=== PATIENT | female | born 1950 | race Caucasian/White ===

== ENCOUNTER → 2016-08-25 | Outpatient (CLI) | payer MEDICARE, MEDICAID ==
[~2016-08-25] MED LIST: ACCUNEB 0.0.63 MG/3 INH; AMARYL1 M1 PO; AMBIEN10 M1 PO; AMLODIPINE10 MG PO; ASPI-COR81 M1 PO; BUSPAR15 MG PO; CELEXA10 MG PO; CIPRO500 MG PO; CYCLOBENZAPRINE10 MG PO; CYMBALTA30 MG PO; DEXILANT60 M1 PO; ESCITALOPRAM OX10 MG PO; FENOFIBRATE54 MG PO; LOPRESSOR25 MG PO; LOPRESSOR50 MG PO; MACRODANTIN100 M1 PO; PLAVIX75 MG PO; PREDNISONE10 MG PO; PRILOSEC40 M1 PO; PRILOSEC40 MG PO; PROAIR HFA0.09 MG/AC IH; PROAIR HFA0.09 MG/AC INH; SPIRIVA18 MCG IH; SYMBICORT1 AE1 IH; Vicodin 5/500 505 MG PO; XANAX0.25 MG PO
[2016-08-25 09:24] LABS: BASO # 0.1 10*3/uL (0.0-0.1); BASO % 0.8 % (0.0-1.0); EOS # 0.1 10*3/uL (0.0-0.4); EOS % 1.7 % (1.0-4.0); HEMATOCRIT 42.9 % (37.0-47.0); HEMOGLOBIN 13.8 g/dl (12.0-16.0); LYMPH % 26.1 % (27.0-41.0); MEAN CELL VOLUME 86.5 fl (81.0-99.0); MEAN CORPUSCULAR HGB 27.8 pg (27.0-31.0); MEAN CORPUSCULAR HGB CONC 32.2 g/dl (33.0-37.0); MONO # 0.4 10*3/uL (0.1-1.0); MONO % 5.9 % (3.0-9.0); NEUT # 4.9 10*3/uL (2.3-7.9); NEUT % 65.2 % (47.0-73.0); PLATELET COUNT AUTOMATED 257 10*3/uL (130-400); RED BLOOD COUNT 4.96 10*6/uL (4.10-5.10); RED CELL DISTRI WIDTH 14.4 % (0-14.5); WHITE BLOOD COUNT 7.5 10*3/uL (4.8-10.8)
[2016-08-25 09:53] LABS: ALBUMIN 3.5 gm/dl (3.1-4.5); ALKALINE PHOSPHATASE 53 U/L (45-117); BILIRUBIN, TOTAL 0.3 mg/dl (0.2-1.0); BUN 14 mg/dl (7-24); CARBON DIOXIDE 29 mmol/L (21-32); CHLORIDE 104 mmol/L (98-107); CHOLESTEROL 186 mg/dL (<200); EST GLOM FILT AFRICAN AMERICAN > 60 ml/min; GLUCOSE 93 mg/dL (65-99); HDL CHOLESTEROL 60 mg/dl (40-60); LDL CHOLESTEROL 104 mg/dL (9-159); POTASSIUM 4.7 mmol/L (3.5-5.1); SGOT/AST 14 IU/L (3-35); SGPT/ALT 20 U/L (12-78); SODIUM 141 mmol/L (136-145); TOTAL PROTEIN 7.5 gm/dL (6.4-8.2); TRIGLYCERIDES 109 mg/dl (<150); VLDL CHOLESTEROL 22 mg/dL (6-40)
[2016-08-25 10:00] LABS: HEMOGLOBIN A1c 6.9 % (4.8-5.6)
== END | disposition home or self-care (01) ==
LOC: LAB 09:07
PROVIDERS: Family Medicine
DX: J44.9 Chronic obstructive pulmonary disease, unspecified (principal); E11.9 Type 2 diabetes mellitus without complications; I10 Essential (primary) hypertension; E78.5 Hyperlipidemia, unspecified; I73.9 Peripheral vascular disease, unspecified; I67.1 Cerebral aneurysm, nonruptured

== ENCOUNTER → 2016-09-23 | Outpatient (CLI) | payer MEDICARE, MEDICAID | END | disposition home or self-care (01) | LOC: MAMMO 10:34 | DX: Z12.31 Encounter for screening mammogram for malignant neoplasm of breast (principal); Z13.820 Encounter for screening for osteoporosis; M19.90 Unspecified osteoarthritis, unspecified site; E11.9 Type 2 diabetes mellitus without complications; E83.51 Hypocalcemia; Z87.891 Personal history of nicotine dependence; Z90.710 Acquired absence of both cervix and uterus; Z78.0 Asymptomatic menopausal state ==

== ENCOUNTER → 2016-12-09 | Outpatient (CLI) | payer MEDICARE, MEDICAID ==
[2016-12-09 10:10] LABS: HEMOGLOBIN A1c 6.8 % (4.8-5.6)
[2016-12-09 10:21] LABS: ALBUMIN 3.6 gm/dl (3.1-4.5); BILIRUBIN, TOTAL 0.3 mg/dl (0.2-1.0); POTASSIUM 4.3 mmol/L (3.5-5.1); TOTAL PROTEIN 7.6 gm/dL (6.4-8.2)
[2016-12-09 10:28] LABS: THYROID STIM HORMONE (HS) 1.11 uIU/ml (0.358-4.75)
== END | disposition home or self-care (01) ==
LOC: LAB 09:27
PROVIDERS: Family Medicine
DX: I10 Essential (primary) hypertension (principal); I73.9 Peripheral vascular disease, unspecified; E11.9 Type 2 diabetes mellitus without complications; E55.9 Vitamin D deficiency, unspecified

== ENCOUNTER → 2017-02-24 | Outpatient (CLI) | payer MEDICARE, MEDICAID ==
[2017-02-24 10:30] LABS: ALBUMIN 3.7 gm/dl (3.1-4.5); ALKALINE PHOSPHATASE 57 U/L (45-117); BUN 10 mg/dl (7-24); CHLORIDE 102 mmol/L (98-107); CHOLESTEROL 208 mg/dL (<200); CREATININE 0.97 mg/dL (0.55-1.02); HDL CHOLESTEROL 57 mg/dl (40-60); LDL CHOLESTEROL 128 mg/dL (9-159); POTASSIUM 4.2 mmol/L (3.5-5.1); SGOT/AST 17 IU/L (3-35); SGPT/ALT 22 U/L (12-78); SODIUM 138 mmol/L (136-145); TOTAL PROTEIN 7.8 gm/dL (6.4-8.2); TRIGLYCERIDES 113 mg/dl (<150); VLDL CHOLESTEROL 23 mg/dL (6-40)
[2017-02-24 10:31] LABS: HEMOGLOBIN 13.5 g/dl (12.0-16.0); MEAN CELL VOLUME 86.2 fl (81.0-99.0); MEAN CORPUSCULAR HGB 27.7 pg (27.0-31.0); MEAN CORPUSCULAR HGB CONC 32.1 g/dl (33.0-37.0); MEAN PLATELET VOLUME 11.8 fl (9.6-12.3); RED BLOOD COUNT 4.87 10*6/uL (4.10-5.10); RED CELL DISTRI WIDTH 14.9 % (0-14.5); WHITE BLOOD COUNT 8.2 10*3/uL (4.8-10.8)
[2017-02-24 10:35] LABS: INTERNATIONAL NORM RATIO 0.9 (2.0-3.5)
== END | disposition home or self-care (01) ==
LOC: LAB 09:45
PROVIDERS: Registered Nurse Flight
DX: I12.9 Hypertensive chronic kidney disease with stage 1 through stage 4 chronic kidney disease, or unspecified chronic kidney disease (principal); N18.3 Chronic kidney disease, stage 3 (moderate); E78.5 Hyperlipidemia, unspecified; E11.22 Type 2 diabetes mellitus with diabetic chronic kidney disease; I74.3 Embolism and thrombosis of arteries of the lower extremities; E55.9 Vitamin D deficiency, unspecified; I67.1 Cerebral aneurysm, nonruptured

== ENCOUNTER → 2017-02-28 | Outpatient (CLI) | payer MEDICARE, MEDICAID | END | disposition home or self-care (01) | LOC: CT 09:38 | DX: I67.1 Cerebral aneurysm, nonruptured (principal); H74.8X2 Other specified disorders of left middle ear and mastoid ==

== ENCOUNTER → 2017-04-26 | Outpatient (CLI) | payer MEDICARE, MEDICAID ==
[2017-04-26 10:12] LABS: HEMATOCRIT 43.1 % (37.0-47.0); HEMOGLOBIN 14.1 g/dl (12.0-16.0); MEAN CELL VOLUME 86.5 fl (81.0-99.0); MEAN CORPUSCULAR HGB 28.3 pg (27.0-31.0); MEAN CORPUSCULAR HGB CONC 32.7 g/dl (33.0-37.0); MEAN PLATELET VOLUME 11.9 fl (9.6-12.3); RED BLOOD COUNT 4.98 10*6/uL (4.10-5.10); RED CELL DISTRI WIDTH 14.1 % (0-14.5); WHITE BLOOD COUNT 8.6 10*3/uL (4.8-10.8)
[2017-04-26 10:25] LABS: ALBUMIN 3.7 gm/dl (3.1-4.5); CREATININE 1.24 mg/dL (0.55-1.02); POTASSIUM 4.2 mmol/L (3.5-5.1); TOTAL PROTEIN 7.8 gm/dL (6.4-8.2)
[2017-04-26 10:33] LABS: THYROID STIM HORMONE (HS) 2.59 uIU/ml (0.358-4.75)
== END | disposition home or self-care (01) ==
LOC: LAB 09:37 → MRI 10:00
PROVIDERS: Registered Nurse Flight
DX: I67.82 Cerebral ischemia (principal); I67.1 Cerebral aneurysm, nonruptured; E11.22 Type 2 diabetes mellitus with diabetic chronic kidney disease; N18.3 Chronic kidney disease, stage 3 (moderate)

== ENCOUNTER → 2017-07-19 | Outpatient (CLI) | payer MEDICARE, MEDICAID ==
[2017-07-19 09:16] LABS: ALBUMIN 3.5 gm/dl (3.1-4.5); BUN 11 mg/dl (7-24); CHLORIDE 100 mmol/L (98-107); CREATININE 0.98 mg/dL (0.55-1.02); HEMATOCRIT 41.9 % (37.0-47.0); HEMOGLOBIN 13.6 g/dl (12.0-16.0); MEAN CELL VOLUME 88.2 fl (81.0-99.0); MEAN CORPUSCULAR HGB 28.6 pg (27.0-31.0); MEAN CORPUSCULAR HGB CONC 32.5 g/dl (33.0-37.0); MEAN PLATELET VOLUME 11.4 fl (9.6-12.3); POTASSIUM 4.1 mmol/L (3.5-5.1); RED BLOOD COUNT 4.75 10*6/uL (4.10-5.10); RED CELL DISTRI WIDTH 14.5 % (0-14.5); SGOT/AST 13 IU/L (3-35); SGPT/ALT 25 U/L (12-78); SODIUM 138 mmol/L (136-145); WHITE BLOOD COUNT 8.4 10*3/uL (4.8-10.8)
[2017-07-19 09:25] LABS: ALKALINE PHOSPHATASE 63 U/L (45-117); TOTAL PROTEIN 7.6 gm/dL (6.4-8.2)
== END | disposition home or self-care (01) ==
LOC: LAB 08:01
PROVIDERS: Registered Nurse Flight
DX: E11.22 Type 2 diabetes mellitus with diabetic chronic kidney disease (principal); N18.3 Chronic kidney disease, stage 3 (moderate)

== ENCOUNTER 2017-09-07 20:20 | Inpatient (IN) | payer MEDICARE, MEDICAID ==
[~2017-09-07] VITALS: Ht 162.5 cm; Wt 94.6 kg
--- NOTE | ~2017-09-07 | EKG ---
[place], [place] ELECTROCARDIOGRAM REPORT NAME: HECTOR DWYER UNIT #: [id number] ROOM: 428 DOCTOR: TAIWO PARRA MD,JEWELS BIRTHDATE: [birth year] DOS: 09/10/2017 Time: At 3:38 p.m. Normal sinus rhythm noted. Heart rate 99 beats per minute. Nonspecific ST-T changes noted in the chest leads. JEWELS MARAVILLA MD CM:EKGRPT:ELECTROCARDIOGRAM REPORT [id number] JEWELS PARRA MD
--- NOTE | ~2017-09-07 | CON ---
[place], [place] REPORT OF CONSULTATION NAME: HECTOR DWYER UNIT #: [id number] ROOM: 428 DOCTOR: SAMREEN MASON MD BIRTHDATE: [birth year] DOS: 09/11/2017 REASON FOR CONSULTATION: Heart palpitations, possible atrial fibrillation. CLINICAL HISTORY: The patient is 66-year-old patient with history of COPD, hypertension and dyslipidemia who came to the Emergency Room with 4-day history of progressive shortness of breath and cough. She has history of COPD. She denies any chest pain, but did have occasional heart palpitations, but no dizziness or syncope. She is also having some progressive wheezing and shortness of breath. Cardiology consulted for further evaluation. Her breathing and cough is better as well as her wheezing is improved since she was in the hospital. Denies any chest pain or palpitations, but she did have occasional heart racing at home. No PND, no orthopnea, no nausea, vomiting, no diarrhea. No headaches, no bladder or bowel symptoms. Her cough is improving. REVIEW OF SYSTEMS: Review of the 10 system negative except as mentioned above. PAST MEDICAL HISTORY: 1. Hypertension. 2. Type 2 diabetes. 3. Dyslipidemia. 4. COPD. PAST SURGICAL HISTORY: 1. History of partial hysterectomy. 2. History of cerebral aneurysm repair. SOCIAL HISTORY: The patient does not drink or use illicit drugs. She is a former smoker. FAMILY HISTORY: Father from stroke. Mother from lung cancer. ALLERGIES: No known drug allergies. HOME MEDICATIONS: Reviewed. PHYSICAL EXAMINATION: VITAL SIGNS: Blood pressure 116/82, pulse 102, respiration rate 20. Weight 94.6 kilos, BMI 35.8. GENERAL: Alert, comfortable, in no acute distress. HEENT: Supple, no distended neck veins, no carotid bruit. Tongue was moist and pharynx was clear. NECK: Supple, no distended neck veins, no carotid bruit. CHEST: Symmetrical, nontender. LUNGS: Few scattered rhonchi and some expiratory wheeze. HEART: Regular rhythm, no S3. Grade 1/6 systolic murmur. ABDOMEN: Benign, nontender. Bowel sounds normal. EXTREMITIES: Showed no edema. Distal pulses palpable. SKIN: Warm and dry. No cyanosis, no clubbing. RECTAL: Deferred. [place], [place] REPORT OF CONSULTATION NAME: HECTOR DWYER UNIT #: [id number] ROOM: 428 DOCTOR: ISABELLA TITUS,SAMREEN BIRTHDATE: [birth year] GENITOURINARY: Deferred. REVIEW OF THE DIAGNOSTIC TESTS: EKG, imaging studies and rhythm strips reviewed as well as her labs reviewed. EKG normal sinus rhythm with nonspecific ST changes, sinus tachycardia. The pertinent labs include hemoglobin 12.8, platelets 281,000. Potassium 3.4, creatinine 1.0 and magnesium 2.4. TSH and T4 normal. Stress test from July 2015 reviewed. IMPRESSIONS: 1. Heart palpitations, currently stable. 2. Mild sinus tachycardia due to her underlying pulmonary condition. 3. Chronic obstructive pulmonary disease exacerbation. 4. Hypertension. 5. Pneumonia. 6. Diabetes type 2. 7. Dyslipidemia. 8. Non-morbid obesity. RECOMMENDATIONS: 1. Continue current medications. 2. Continue to monitor heart rate and blood pressures. 3. Check 2D echo for LV function and valvular function. 4. Outpatient cardiac event monitor after discharge. 5. The patient is going for a bronchoscopy tomorrow. 6. There is no family at bedside at the time of my examination. 7. Supplement her potassium, so far I have not seen any atrial fibrillation her since admission. SAMREEN MASON MD CM:CONSTR:REPORT OF CONSULTATION 2253 09/12/17 0032 interface
--- NOTE | ~2017-09-07 | PR ---
[place], [place] PROGRESS NOTE NAME: HECTOR DWYER UNIT #: [id number] ROOM: 428 DOCTOR: TAIWO PARRA MD,JEWELS BIRTHDATE: [birth year] DOS: 09/14/2017 SUBJECTIVE: . She has been noted significant improvement of acute respiratory symptoms after the current bronchoscopy. The coughing has been minimal with blood stained sputum, which is normal after the bronchoscopy. Denies symptoms of chest pain or hemoptysis. Shortness of breath improved markedly. OBJECTIVE: VITAL SIGNS: Normal temperature, respiratory rate 20, heart 99, blood pressure 150/89. The pulse oxygen saturation recorded as 90% on 2 liter nasal cannula. HEENT: Examination shows head was atraumatic. Eyes nonicterus. NECK: Supple. CARDIOVASCULAR: S1, S2 is audible. LUNGS: The patient noted without any wheezing or crackles at the present time. ABDOMEN: Soft, nontender and obese. EXTREMITIES: Without acute edema. LABORATORY DATA: culture bronchial washing noted normal libby, final culture results were pending. IMPRESSION: Progressive and noted acute respiratory failure with current bronchoscopy. The respiratory symptoms have been improved markedly. PLAN OF MANAGEMENT: The patient could be considered for home discharge at the present time. A 6-minute walk test was ordered to assess the possible need of home oxygen. In the meantime, continue supportive therapy, plan of management and care. JEWELS MARAVILLA MD CM:PNTRANS [id number] JEWELS PARRA MD 09/14/17 2147 interface
--- NOTE | ~2017-09-07 | PR ---
[place], [place] PROGRESS NOTE NAME[id number] UNIT #: [id number] ROOM: 428 DOCTOR: TAIWO PARRA MD,JEWELS BIRTHDATE: [birth year] DOS: 09/12/2017 SUBJECTIVE: The patient was seen today, she has been noted comfortable at this time, resting on the bed. There were no symptoms of chest pain, coughing. The patient remains unchanged. Denies symptoms of hemoptysis. Shortness of breath was still noted and unchanged. Denies any edema or pain of the lower extremities. OBJECTIVE: VITAL SIGNS: For the patient which has been recorded shows, the temperature noted as normal. The respiration recorded as 20, heart rate 100, blood pressure 150/72-160/81. The pulse oxygen saturation is 3 liters 92% saturation. HEENT: Examination shows head was atraumatic. Eyes nonicterus. NECK: Supple. CARDIOVASCULAR: S1, S2 audible. LUNGS: Noted with decreased breaths with expiratory wheezing, no crackles. ABDOMEN: Soft. Moderate obesity. Bowel sounds present. EXTREMITIES: Without any acute edema. LABORATORY DATA: Today, CBC: WBC count 12.8, hemoglobin and hematocrit count were normal. BMP his morning, BUN 16, creatinine was normal, glucose 172. CO2 is 33. IMPRESSION: The patient has been noted with ongoing acute exacerbation of chronic obstructive pulmonary disease, acute tracheobronchitis, persistent cough, and preop for bronchoscopy tomorrow. PLAN OF MANAGEMENT: No changes in plan of therapy. Continue current plan of management. The bronchoscopy rescheduled to be done tomorrow morning because of some scheduling difficulty. Other supportive therapy, plan of management, and care plan. JEWELS MARAVILLA MD CM:PNTRANS [phone] JEWELS PARRA MD 09/13/17 0237 interface
--- NOTE | ~2017-09-07 | PR ---
[place], [place] PROGRESS NOTE NAME: HECTOR DWYER UNIT #: [id number] ROOM: 428 DOCTOR: TAIWO PARRA MD,JEWELS BIRTHDATE: [birth year] DOS: 09/10/2017 PULMONARY PROGRESS NOTE SUBJECTIVE: She has been still noted excessive chest congestion and coughing without any sputum expectoration. Denies symptoms of nausea or vomiting. Denies any abdominal pain. The patient has been continued on the bronchodilators, antibiotics, corticosteroids and other therapies. She has been essentially noted without any changes in the respiratory status in the last 24 hours. OBJECTIVE: VITAL SIGNS: For the patient, which was recorded shows the temperature of the patient noted as normal, respiratory rate 22, heart rate of 98, blood pressure 151/53. The pulse oxygen saturation on 4 liters nasal cannula 93% saturation. HEENT: No new change. NECK: Supple. CARDIOVASCULAR: S1, S2 is audible. LUNGS: The patient was noted with persistent moderate decreased breath sounds with wheezing. There were no crackles. ABDOMEN: Soft, nontender. EXTREMITIES: Without any acute edema. LABORATORY DATA: Today, the culture of the sputum of the patient preliminary noted normal libby with Gram stain yesterday, many white blood cells, moderate epithelial cells, few gram-positive bacilli. The CBC, WBC count 17.6, hemoglobin and hematocrit and platelet count was normal. IMPRESSION: 1. The patient who has been currently admitted to the hospital noted with ongoing acute exacerbation of chronic obstructive pulmonary disease with acute bronchitis of the patient as well as acute hypoxic respiratory failure. 2. Chronic moderate obesity. 3. Atrial fibrillation of the patient noted new onset on this admission. PLAN OF THERAPY: Continuation of bronchodilator with oxygen supplementation dose of Solu-Medrol will be decreased to 40 mg q. 8h at this time from 80 mg q. 8 hours. The patient will be continued DVT prophylaxis. Further adjust the medication of the patient as necessary. Therapy bronchoscopy planned to be done on Tuesday morning for the patient because of the chronic symptom and current acute symptom with progressive worsening. Additional treatment changes to be done based on progression of the illness. The patient is agreeable for the bronchoscopy. N.p.o. past midnight status will be achieved from midnight of Tuesday. [place], [place] PROGRESS NOTE NAME: HECTOR DWYER UNIT #: [id number] ROOM: 428 DOCTOR: JEWELS BRASWELL MD BIRTHDATE: [birth year] JEWELS MARAVILLA MD CM:PNTRANS [id number] JEWELS PARRA MD 09/11/175 interface
--- NOTE | ~2017-09-07 | PROC NOTE ---
[place], [place] PROCEDURE NOTE NAME: HECTOR DWYER UNIT #: [id number] ROOM: 428 DOCTOR: TAIWO PARRA MD,JEWELS BIRTHDATE: [birth year] DOS: 09/13/2017 BRONCHOSCOPY NOTE PREOPERATIVE DIAGNOSES: Persistent severe coughing, wheezing and shortness of breath with maximal medical therapy. POSTOPERATIVE DIAGNOSES: Severe purulent tracheobronchitis noted with removal of mucus plugs all of the endobronchial tree bilaterally, greater in the left upper lung. PROCEDURE DESCRIPTION: Informed consent obtained from the patient. The patient brought to the OR and placed in supine position. Conscious sedation administered by the Anesthesia Department. After achieving appropriate sedation, airway introduced into the mouth. Bronchoscope advanced to the airway into laryngeal area. Epiglottis vocal cords were seen. The vocal cords moving with symmetrical movements. Bronchoscope advanced through the vocal cord into the tracheal lumen. Tracheal lumen was noted with moderate amount of purulent secretion, which were removed with the help of normal saline wash. Pamella noted sharp. Right upper, right middle, right lower, left upper, lingular lower bronchi were all examined. Moderate to large amount of purulent secretion present in the lower portion of the endobronchial tree with impaction of the thick mucus as well. All the secretions clear of the upper normal saline wash. Procedure in general well tolerated. She was noted with hypoxia during the procedure, which was treated with supplementation of oxygen and temporary withdrawal of the scope from the airways. JEWELS MARAVILLA MD CM:PROCNOTE:PROCEDURE NOTE [id number] JEWELS PARRA MD
--- NOTE | ~2017-09-07 | CON ---
[place], [place] REPORT OF CONSULTATION NAME: HECTOR DWYER UNIT #: [id number] ROOM: 428 DOCTOR: JEWELS BRASWELL MD BIRTHDATE: [birth year] DOS: 09/09/2017 PULMONARY CONSULTATION, EVALUATION, AND MANAGEMENT CONSULTATION REQUESTED BY: Hospitalist service. REASON FOR CONSULTATION: For assessment of COPD with respiratory failure. HISTORY OF PRESENT ILLNESS: This is a 66-year-old white female with past history of COPD, who has not been seen in my office in many years. She was last time assessed during a hospitalization in 2009. She stated having symptoms of increased shortness of breath, which has been occurring for the patient and noted gradually worsening in the past few days. Symptoms have been noted with worsening shortness of breath occurring with minimal exertion. She does have symptoms of coughing, which has been present for about a month or so noted with further worsening. The coughing is currently described to be nonproductive and excessive at times. She does have a significant chest congestion and not able to expectorate sputum and states there is rattling in the chest. She does have symptoms of wheezing that was present at rest and worsening with exertion. Denies symptoms of chest pain or any hemoptysis. Denies symptoms of chest trauma. REVIEW OF SYSTEMS: CONSTITUTIONAL: Fatigue and tiredness noted with the current symptoms. There were no symptoms of fever or chills reported. EYES: Denies any burning, redness, or tenderness. EARS, NOSE, AND THROAT SYMPTOMS: Denies sore throat, hoarseness, otalgia, postnasal drainage, or epistaxis. CARDIOVASCULAR: Denies anginal pain, edema, or pain of lower extremities. GASTROINTESTINAL: Denies dysphagia, nausea, vomiting, diarrhea, abdominal pain, hematemesis, melena, or hematochezia. SKIN: Denies abnormal lesions, rashes, or itching. CENTRAL NERVOUS SYSTEM: Denies dizziness, headache, diplopia, syncopal episodes, or tingling sensation of extremities. Remaining systems were reviewed with the patient, they were noted all negative. PAST MEDICAL HISTORY: 1. COPD. 2. Gastroesophageal reflux. 3. Essential hypertension. 4. Degenerative arthritis of the spine. 5. General anxiety disorder. 6. Mild obesity. PAST SURGICAL HISTORY: 1. Bilateral cataract extraction with lens implantation. 2. Complete hysterectomy. 3. Cystocele repair. 4. Cervical fusion. [place], [place] REPORT OF CONSULTATION NAME: HECTOR DWYER UNIT #: [id number] ROOM: [facility] DOCTOR: TAIWO PARRA MD,JEWELS BIRTHDATE: [birth year] 5. Repair of subclavian artery on the right side. SOCIAL HISTORY: The patient is , has 2 children, lives at home. Denies history of alcohol use, illicit drug use. Started smoking at age of [age] years old, about 1-1/2 pack of cigarettes per day, discontinued in 2009. The patient has worked in the [employer] for about 1 year. FAMILY HISTORY: Father at the age of 8282 years old, unknown medical illnesses. Mother at age of 7171 years old with cancer of the brain. MEDICATIONS: The current administered medications were noted as use of gabapentin, IV Solu-Medrol 40 mg every 8 hours, DuoNeb, vitamin D, Dulera, metoprolol tartrate, aspirin, Norvasc, Mucinex, Lovenox, Amaryl, omeprazole, Rocephin, and Zithromax. DRUG ALLERGIES: No known drug allergies. PHYSICAL EXAMINATION: GENERAL: A 66-year-old female, who has been noted at this time without any acute distress, resting. The height of 5 feet 4 inches, weight of 208 pounds, BMI 35.8. VITAL SIGNS: Temperature noted 102.7 degree Fahrenheit on admission noted gradually with afebrile status, respiratory 18-19, heart rate of 90-108, blood pressure 130/69-136/85. Pulse oxygen saturation on room air was 80% and on 5 liters at 95% saturation. HEENT: Head was atraumatic. Eyes nonicterus. NECK: Supple. CARDIOVASCULAR: S1, S2 is audible. LUNGS: The patient noted with moderate to severe generally reduced breath sounds with diffuse expiratory wheezing, no crackles. ABDOMEN: Noted soft with moderate obesity. Bowel sounds present. EXTREMITIES: Without any edema, clubbing, or cyanosis. CENTRAL NERVOUS SYSTEM: Nonfocal. MUSCULOSKELETAL: Without acute deformity. SKIN: visible skin, no lesions or rashes. LABORATORY DATA: The CMP of the patient from 09/07/2017, glucose 174, BUN normal, creatinine normal. CMP normal. CBC of the patient from 09/08/2017, noted as normal CBC. The PT, PTT from 09/08/2017 are normal. CMP of the patient from 09/08/2017 noted with glucose 133, potassium 3.4. The arterial blood gas on 3 liters, pH of 7.38, pCO2 34, pO2 64.7. CBC this morning was normal. The BMP this morning, BUN normal, creatinine was normal. IMAGING STUDIES: Chest x-ray of the patient that was done on admission of the patient was noted without any acute pulmonary infiltration on admission. The chest x-ray one view done yesterday shows similar finding of COPD without any acute pulmonary infiltration. IMPRESSION: 1. The patient will be currently admitted to the hospital with acute hypoxic [place], [place] REPORT OF CONSULTATION NAME: HECTOR DWYER UNIT #: [id number] ROOM: [facility] DOCTOR: JEWELS BRASWELL MD BIRTHDATE: [birth year] respiratory failure with exacerbation of acute chronic obstructive pulmonary disease. 2. Acute tracheobronchitis superimposed as well. Excessive chest congestion of the patient with chronic cough. The patient was also noted most of it related to mucus impaction of the major airways. 3. New onset of atrial fibrillation with rapid ventricular response was also noted this morning as the heart rate was noted at about 120+ with atrial fibrillation. PLAN OF TREATMENT: Continue corticosteroids, bronchodilators, and oxygen supplementation, BiPAP to be also used at nighttime and p.r.n. during the day with oxygen supplementation at other times. Sputum for Gram stain and culture. Other supportive therapy, plan of management continue. Additional change in treatment will be done based on the progression of illness. JEWELS MARAVILLA MD CM:CONSTR:REPORT OF CONSULTATION 1624 09/10/17 0232 interface
--- NOTE | ~2017-09-07 | PR ---
[place], [place] PROGRESS NOTE NAME: HECTOR DWYER UNIT #: [id number] ROOM: 428 DOCTOR: JEWELS BRASWELL MD BIRTHDATE: [birth year] DOS: 09/13/2017 SUBJECTIVE: The patient has been noted n.p.o. past midnight for bronchoscopy. She still noted to have moderate severe cough. The patient remained nonproductive with associated wheezing at time and shortness of breath. Denies symptoms of hemoptysis. No symptoms of chest pain. Denies any acute nausea, vomiting or diarrhea. The remaining system were reviewed, they were noted all negative. PHYSICAL EXAMINATION: GENERAL: A 66-year-old white female patient currently noted awake and alert without any distress. VITAL SIGNS: For the patient noted normal temperature, respiratory rate of 17-20. Heart rate of 101-110. Blood pressure noted 110/67-133/79. Pulse oxygen saturation noted on 3 liters cannula of 93% saturation at rest. HEENT: Examination shows head was atraumatic. Eyes nonicterus. NECK: Supple. CARDIOVASCULAR: S1, S2 audible. LUNGS: Without any wheezing or crackles at the present time. Breaths are noted mildly decreased bilaterally. ABDOMEN: Soft, nontender. EXTREMITIES: Without any acute edema. SKIN: Visible skin was noted without any lesions or rashes. MUSCULOSKELETAL SYMPTOMS: Without any acute deformities. LABORATORY DATA: CBC today: WBC count 16.2, hemoglobin 14.5, hematocrit 45.6, platelet count normal. The BMP of 09/13/2017, glucose 200, BUN 19, creatinine 1.15. Remaining electrolytes normal. IMPRESSION: 1. Ongoing severe acute exacerbation of chronic obstructive pulmonary disease was noted persistent symptoms of nonproductive cough, chest congestion, n.p.o. for bronchoscopy. 2. Chronic obesity as well. 3. Hyperglycemia secondary to corticosteroids with a history of diabetes mellitus. PLAN OF MANAGEMENT: Proceed with the bronchoscopy today as plan. Continue maximizing medical management of hyperglycemia. Continue bronchodilators and oxygen supplementation. Any additional change in treatment for the patient will be necessary would be done after the bronchoscopy. [place], [place] PROGRESS NOTE NAME: HECTOR DWYER UNIT #: [id number] ROOM: 428 DOCTOR: AZJEWELS MONTANO MD BIRTHDATE: [birth year] JEWELS MARAVILLA MD CM:ANUMTRANS [phone] JEWELS PARRA MD 09/14/17 0115 interface
--- NOTE | ~2017-09-07 | PR ---
[place], [place] PROGRESS NOTE [id number] #: [id number] ROOM: 428 DOCTOR: TAIWO PARRA MDJEWELS BIRTHDATE: [birth year] DOS: 09/11/2017 SUBJECTIVE: She has been still noted with excessive chest congestion. She has been expectorating minimal sputum, shortness of breath and wheezing has been noted decreased, but not resolved. Denies symptoms of chest pain or abdominal pain. Denies symptoms of nausea, vomiting. Denies symptoms of hemoptysis. The patient does have symptoms of dysuria, suprapubic pain. The remaining systems were reviewed with the patient, they were noted all negative. OBJECTIVE: GENERAL: This is a 66-year-old white female who has been currently resting comfortably in the bed, was noted with the coughing intermittently without any sputum expectoration. She does not have signs of respiratory distress or tachypnea. VITAL SIGNS: For the patient recorded blood pressure of 160/80-152/73, heart rate ranging between 91-102, respiratory 20-22, temperature was normal. The pulse oxygen saturation on 3 liters 98% saturation recorded. HEENT: Examination shows head was atraumatic. Eyes nonicterus. NECK: Supple. CARDIOVASCULAR: S1, S2 audible. LUNGS: The lung was noted with decreased breath sounds. Expiratory wheezing with occasional crackles of the lungs. ABDOMEN: Soft with moderate obesity. Bowel sounds present. EXTREMITIES: The patient noted without any acute edema. VISIBLE SKIN: No lesions or rashes. MUSCULOSKELETAL: Without any acute deformities. CENTRAL NERVOUS SYSTEM: No focal deficit. Cranial nerves 2-12 intact. LABORATORY DATA: In this patient's CBC today, WBC count 12.8, hemoglobin and hematocrit normal, platelet count normal. BMP this morning, glucose 244, BUN normal, creatinine normal, potassium 3.4. CT of the chest that was ordered by the primary care attending yesterday, does not show an evidence of pulmonary embolism. There was no lymphadenopathy noted. CT was personally reviewed. Small reticular nodular infiltration noted in the left upper lung, in the periphery of the lung. A 3 mm nodule noted in the left upper lobe as well. This was noted subpleurally. IMPRESSION: 1. The patient who has been current noted with a small reticular nodular infiltration. The patient with possibly localized infection would be considered in the left upper lobe. 2. A 3 mm nodule. 3. Ongoing acute exacerbation of chronic obstructive pulmonary disease with tracheobronchitis with excessive coughing and mucus impaction was also noted in the airways. PLAN OF MANAGEMENT: Bronchoscopy planned tomorrow will be done. The other abnormality would be monitored as an outpatient. No immediate intervention [place], [place] PROGRESS NOTE NAME: HECTOR DWYER UNIT #: [id number] ROOM: 428 DOCTOR: TAIWO PARRA MD,JEWELS BIRTHDATE: [birth year] noted with current abnormality left upper lobe. CT scan of the chest could be done in about 6 months to reassess the pulmonary nodule of the left upper lobe. Other supportive plan of therapy and care plan. She will be made n.p.o. past midnight for bronchoscopy that was planned to be done tomorrow. JEWELS MARAVILLA MD CM:PNTRANS [id number] JEWELS PARRA MD 09/11/17 1831 interface
--- NOTE | ~2017-09-07 | EKG ---
[place], [place] ELECTROCARDIOGRAM REPORT NAME: HECTOR DWYER UNIT #: [id number] ROOM: 428 DOCTOR: TAIWO PARRA MD,JEWELS BIRTHDATE: [birth year] DOS: 09/07/2017 Electrocardiogram done on 09/07/2017, at 2049 hours. Sinus tachycardia noted with heart rate of 108 beats per minute. Nonspecific ST-T changes were noted. JEWELS MARAVILLA MD CM:EKGRPT:ELECTROCARDIOGRAM REPORT 1646 1740 JEWELS PARRA MD
[2017-09-07 20:21] VITALS: BP 157/71
[2017-09-07 20:55] VITALS: BP 121/70
[2017-09-07 21:13] LABS: BASO % 0.4 % (0.0-1.0); EOS # 0.1 10*3/uL (0.0-0.4); HEMATOCRIT 43.7 % (37.0-47.0); LYMPH # 0.9 10*3/uL (1.3-4.4); LYMPH % 8.2 % (27.0-41.0); MEAN CELL VOLUME 87.8 fl (81.0-99.0); MEAN CORPUSCULAR HGB 28.1 pg (27.0-31.0); MEAN PLATELET VOLUME 11.5 fl (9.6-12.3); MONO # 0.5 10*3/uL (0.1-1.0); MONO % 4.7 % (3.0-9.0); NEUT # 9.5 10*3/uL (2.3-7.9); NEUT % 85.2 % (47.0-73.0); PLATELET COUNT AUTOMATED 241 10*3/uL (130-400); RED BLOOD COUNT 4.98 10*6/uL (4.10-5.10); RED CELL DISTRI WIDTH 14.8 % (0-14.5); WHITE BLOOD COUNT 11.2 10*3/uL (4.8-10.8)
[2017-09-07 21:29] LABS: ALBUMIN 3.6 gm/dl (3.1-4.5); ALKALINE PHOSPHATASE 65 U/L (45-117); BUN 9 mg/dl (7-24); CHLORIDE 102 mmol/L (98-107); CREATININE 1.06 mg/dL (0.55-1.02); POTASSIUM 3.6 mmol/L (3.5-5.1); SGOT/AST 19 IU/L (3-35); SGPT/ALT 26 U/L (12-78); SODIUM 138 mmol/L (136-145); TOTAL PROTEIN 7.9 gm/dL (6.4-8.2)
[2017-09-07 21:31] LABS: TROPONIN I < 0.015 ng/ml (<0.045)
[2017-09-07 21:34] VITALS: BP 129/85
[2017-09-07 21:36] LABS: THYROID STIM HORMONE (HS) 0.797 uIU/ml (0.358-4.75)
[2017-09-07 21:53] VITALS: BP 119/83
[2017-09-07 22:30] VITALS: BP 124/79
[2017-09-07] MEDS ORDERED: NEURONTIN100 MG PO (22:47)
[2017-09-07] MEDS ORDERED: SYMB160 INH (22:48)
[2017-09-07] MEDS ORDERED: PROAIR HFA8.5 GM INH (22:49)
[2017-09-08] VITALS: BP 124/79
[2017-09-08 06:16] LABS: BASO % 0.3 % (0.0-1.0); HEMATOCRIT 41.8 % (37.0-47.0); HEMOGLOBIN 12.9 g/dl (12.0-16.0); LYMPH % 10.2 % (27.0-41.0); MEAN CELL VOLUME 89.1 fl (81.0-99.0); MEAN CORPUSCULAR HGB 27.5 pg (27.0-31.0); MEAN CORPUSCULAR HGB CONC 30.9 g/dl (33.0-37.0); MEAN PLATELET VOLUME 11.6 fl (9.6-12.3); MONO # 0.5 10*3/uL (0.1-1.0); MONO % 5.3 % (3.0-9.0); NEUT # 8.2 10*3/uL (2.3-7.9); PLATELET COUNT AUTOMATED 217 10*3/uL (130-400); RED BLOOD COUNT 4.69 10*6/uL (4.10-5.10); WHITE BLOOD COUNT 9.7 10*3/uL (4.8-10.8)
[2017-09-08 06:29] LABS: ALBUMIN 3.2 gm/dl (3.1-4.5); ALKALINE PHOSPHATASE 59 U/L (45-117); BUN 7 mg/dl (7-24); CHLORIDE 107 mmol/L (98-107); CHOLESTEROL 155 mg/dL (<200); CREATININE 0.88 mg/dL (0.55-1.02); FREE T4 1.01 ng/dl (0.76-1.46); HDL CHOLESTEROL 47 mg/dl (40-60); LDL CHOLESTEROL 89 mg/dL (9-159); PHOSPHOROUS 1.8 mg/dL (2.5-4.9); POTASSIUM 3.4 mmol/L (3.5-5.1); SGOT/AST 20 IU/L (3-35); SGPT/ALT 24 U/L (12-78); SODIUM 143 mmol/L (136-145); TOTAL PROTEIN 7.4 gm/dL (6.4-8.2); TRIGLYCERIDES 93 mg/dl (<150); VLDL CHOLESTEROL 19 mg/dL (6-40)
[2017-09-08 06:34] LABS: THYROID STIM HORMONE (HS) 0.517 uIU/ml (0.358-4.75)
[2017-09-08 06:44] LABS: ACT PARTIAL THROMBO TIME 23.3 SECONDS (20.8-31.5)
[2017-09-08 07:20] LABS: VITAMIN D, 25-HYDROXY 24.7 ng/mL (30-100)
[2017-09-08 08:00] VITALS: BP 136/85
[2017-09-08 12:00] VITALS: BP 100/69
[2017-09-08 15:37] VITALS: BP 105/67
[2017-09-08 15:59] LABS: ABG BASE EXCESS -3.2 mmol/L (-2.0-2.0); ABG HCO3 20.7 mmol/l (22-26); ABG O2 SATURATION 92.6 % (95-97); ARTERIAL BLOOD GAS PCO2 34.9 mmHg (35-45); ARTERIAL BLOOD GAS PH 7.389 (7.35-7.45); ARTERIAL BLOOD GAS PO2 64.7 mmHg (80-90)
[2017-09-08 19:27] LABS: BILIRUBIN NEGATIVE (NEGATIVE); BLOOD NEGATIVE (NEGATIVE); CLARITY CLEAR (CLEAR); COLOR YELLOW (YELLOW); GLUCOSE 2+ (NEGATIVE); KETONE NEGATIVE (NEGATIVE); LEUKO ESTERASE NEGATIVE (NEGATIVE); NITRITE NEGATIVE (NEGATIVE); SPECIFIC GRAVITY 1.015 (1.005-1.030); UROBILINOGEN 0.2 E.U./dl (0.2-1.0)
[2017-09-08 19:32] LABS: BACTERIA TRACE; RBC 0-2 rbc/hpf (0-2); WBC 0-2 wbc/hpf (0-5)
[2017-09-08 20:00] VITALS: BP 115/59
[2017-09-09] VITALS: BP 121/65
[2017-09-09 04:00] VITALS: BP 132/60
[2017-09-09 04:41] LABS: HEMATOCRIT 39.7 % (37.0-47.0); HEMOGLOBIN 12.6 g/dl (12.0-16.0); MEAN CELL VOLUME 87.8 fl (81.0-99.0); MEAN CORPUSCULAR HGB 27.9 pg (27.0-31.0); MEAN CORPUSCULAR HGB CONC 31.7 g/dl (33.0-37.0); MEAN PLATELET VOLUME 11.4 fl (9.6-12.3); PLATELET COUNT AUTOMATED 224 10*3/uL (130-400); RED BLOOD COUNT 4.52 10*6/uL (4.10-5.10); RED CELL DISTRI WIDTH 14.8 % (0-14.5); WHITE BLOOD COUNT 10.3 10*3/uL (4.8-10.8)
[2017-09-09 05:04] LABS: BUN 9 mg/dl (7-24); CHLORIDE 108 mmol/L (98-107); CREATININE 0.92 mg/dL (0.55-1.02); POTASSIUM 3.8 mmol/L (3.5-5.1); SODIUM 142 mmol/L (136-145)
[2017-09-09 05:29] LABS: ATYPICAL LYMPHS 3 % (0-0); PLATELET SUFFICIENCY NORMAL (NORMAL); TOTAL CELLS COUNTED 100 #CELLS
[2017-09-09 08:00] VITALS: BP 127/66
[2017-09-09 11:51] VITALS: BP 130/69
[2017-09-09 16:00] VITALS: BP 126/65
[2017-09-09 20:00] VITALS: BP 129/73
[2017-09-10] VITALS: BP 132/73
[2017-09-10 06:27] LABS: BUN 14 mg/dl (7-24); CHLORIDE 105 mmol/L (98-107); CREATININE 0.94 mg/dL (0.55-1.02); POTASSIUM 3.8 mmol/L (3.5-5.1); SODIUM 141 mmol/L (136-145)
[2017-09-10 06:49] LABS: HEMATOCRIT 41.2 % (37.0-47.0); MEAN CELL VOLUME 87.8 fl (81.0-99.0); MEAN CORPUSCULAR HGB 27.7 pg (27.0-31.0); MEAN CORPUSCULAR HGB CONC 31.6 g/dl (33.0-37.0); MEAN PLATELET VOLUME 11.7 fl (9.6-12.3); NUCLEATED RED BLOOD CELL 0.1 % (0.0-0.0); PLATELET COUNT AUTOMATED 269 10*3/uL (130-400); RED BLOOD COUNT 4.69 10*6/uL (4.10-5.10); WHITE BLOOD COUNT 17.6 10*3/uL (4.8-10.8)
[2017-09-10 07:35] LABS: PLATELET SUFFICIENCY NORMAL (NORMAL); TOTAL CELLS COUNTED 100 #CELLS
[2017-09-10 08:00] VITALS: BP 134/71
[2017-09-10 12:00] VITALS: BP 131/53
[2017-09-10 16:00] VITALS: BP 115/65
[2017-09-10 20:00] VITALS: BP 130/75
[2017-09-11] VITALS: BP 148/52
[2017-09-11 06:08] LABS: BASO % 0.2 % (0.0-1.0); HEMATOCRIT 40.6 % (37.0-47.0); HEMOGLOBIN 12.9 g/dl (12.0-16.0); LYMPH # 1.1 10*3/uL (1.3-4.4); LYMPH % 8.5 % (27.0-41.0); MEAN CELL VOLUME 87.1 fl (81.0-99.0); MEAN CORPUSCULAR HGB 27.7 pg (27.0-31.0); MEAN CORPUSCULAR HGB CONC 31.8 g/dl (33.0-37.0); MEAN PLATELET VOLUME 11.7 fl (9.6-12.3); MONO # 0.5 10*3/uL (0.1-1.0); MONO % 3.6 % (3.0-9.0); NEUT % 86.3 % (47.0-73.0); PLATELET COUNT AUTOMATED 261 10*3/uL (130-400); RED BLOOD COUNT 4.66 10*6/uL (4.10-5.10); RED CELL DISTRI WIDTH 14.8 % (0-14.5); WHITE BLOOD COUNT 12.8 10*3/uL (4.8-10.8)
[2017-09-11 06:28] LABS: BUN 15 mg/dl (7-24); CHLORIDE 102 mmol/L (98-107); CREATININE 1.04 mg/dL (0.55-1.02); PHOSPHOROUS 2.3 mg/dL (2.5-4.9); POTASSIUM 3.4 mmol/L (3.5-5.1); SODIUM 141 mmol/L (136-145)
[2017-09-11 08:00] VITALS: BP 152/73
[2017-09-11 12:00] VITALS: BP 116/82
[2017-09-11 16:00] VITALS: BP 131/74
[2017-09-11 20:00] VITALS: BP 139/69
[2017-09-12] VITALS: BP 100/59; BP 115/71
[2017-09-12 06:44] LABS: HEMATOCRIT 45.1 % (37.0-47.0); HEMOGLOBIN 14.1 g/dl (12.0-16.0); MEAN CELL VOLUME 88.1 fl (81.0-99.0); MEAN CORPUSCULAR HGB 27.5 pg (27.0-31.0); MEAN CORPUSCULAR HGB CONC 31.3 g/dl (33.0-37.0); MEAN PLATELET VOLUME 11.7 fl (9.6-12.3); NUCLEATED RED BLOOD CELL 0.2 % (0.0-0.0); PLATELET COUNT AUTOMATED 312 10*3/uL (130-400); RED BLOOD COUNT 5.12 10*6/uL (4.10-5.10); RED CELL DISTRI WIDTH 14.8 % (0-14.5); WHITE BLOOD COUNT 12.8 10*3/uL (4.8-10.8)
[2017-09-12 07:12] LABS: CREATININE 1.11 mg/dL (0.55-1.02); PHOSPHOROUS 3.3 mg/dL (2.5-4.9); POTASSIUM 3.7 mmol/L (3.5-5.1)
[2017-09-12 07:55] LABS: PLATELET SUFFICIENCY NORMAL (NORMAL); TOTAL CELLS COUNTED 100 #CELLS
[2017-09-12 08:00] VITALS: BP 160/81
[2017-09-12 12:00] VITALS: BP 150/72
[2017-09-12 16:00] VITALS: BP 123/75
[2017-09-12 20:00] VITALS: BP 121/89
[2017-09-13] VITALS (10 sets, daily range): BP systolic 105–150; BP diastolic 60–84
[2017-09-13 06:28] LABS: HEMATOCRIT 45.6 % (37.0-47.0); HEMOGLOBIN 14.5 g/dl (12.0-16.0); MEAN CELL VOLUME 85.9 fl (81.0-99.0); MEAN CORPUSCULAR HGB 27.3 pg (27.0-31.0); MEAN CORPUSCULAR HGB CONC 31.8 g/dl (33.0-37.0); MEAN PLATELET VOLUME 11.8 fl (9.6-12.3); NUCLEATED RED BLOOD CELL 0.2 % (0.0-0.0); PLATELET COUNT AUTOMATED 343 10*3/uL (130-400); RED BLOOD COUNT 5.31 10*6/uL (4.10-5.10); RED CELL DISTRI WIDTH 14.6 % (0-14.5); WHITE BLOOD COUNT 16.2 10*3/uL (4.8-10.8)
[2017-09-13 06:36] LABS: CREATININE 1.15 mg/dL (0.55-1.02); POTASSIUM 3.9 mmol/L (3.5-5.1)
[2017-09-13 07:19] LABS: ATYPICAL LYMPHS 2 % (0-0); PLATELET SUFFICIENCY NORMAL (NORMAL); TOTAL CELLS COUNTED 100 #CELLS
[2017-09-14 06:55] LABS: HEMATOCRIT 43.2 % (37.0-47.0); HEMOGLOBIN 13.6 g/dl (12.0-16.0); MEAN CELL VOLUME 87.1 fl (81.0-99.0); MEAN CORPUSCULAR HGB 27.4 pg (27.0-31.0); MEAN CORPUSCULAR HGB CONC 31.5 g/dl (33.0-37.0); MEAN PLATELET VOLUME 11.2 fl (9.6-12.3); NUCLEATED RED BLOOD CELL 0.3 % (0.0-0.0); PLATELET COUNT AUTOMATED 301 10*3/uL (130-400); RED BLOOD COUNT 4.96 10*6/uL (4.10-5.10); RED CELL DISTRI WIDTH 14.6 % (0-14.5); WHITE BLOOD COUNT 14.9 10*3/uL (4.8-10.8)
[2017-09-14 07:10] LABS: CREATININE 1.12 mg/dL (0.55-1.02); POTASSIUM 4.1 mmol/L (3.5-5.1)
[2017-09-14 07:19] LABS: ATYPICAL LYMPHS 2 % (0-0); PLATELET SUFFICIENCY NORMAL (NORMAL); TOTAL CELLS COUNTED 100 #CELLS
[2017-09-14 08:00] VITALS: BP 150/89
[2017-09-14] MEDS ORDERED: VITAMIN D-32000 UNIT PO (11:13)
[2017-09-14] MEDS ORDERED: PREDNISONE10 MG PO (11:13)
[2017-09-14] MEDS ORDERED: DOXYCYCLINE100 M3 PO (11:13)
[2017-09-14 12:00] VITALS: BP 117/70
[2017-09-14] MEDS ORDERED: OXYGEN NAS (12:44)
[2017-09-14 16:08] LABS: ACID FAST SPEC PROCESSING Concentration (.)
== END 2017-09-14 15:40 | disposition home or self-care (01) | DRG 871 ==
LOC: ED 20:20 → EDHOLD 22:02 → 5E 22:02 → 4E 22:02 → 5E 22:09 → ICCU 09-08 15:08 → 4E 09-09 13:14
PROVIDERS: Emergency Medicine Emergency Medical Services; Family Medicine; Internal Medicine; Internal Medicine Critical Care Medicine
PROC: 0BC68ZZ Extirpation of Matter from Right Lower Lobe Bronchus, Via Natural or Artificial Opening Endoscopic (ICD-10-PCS; principal; 2017-09-13)
PROC: 0BC78ZZ Extirpation of Matter from Left Main Bronchus, Via Natural or Artificial Opening Endoscopic (ICD-10-PCS; principal; 2017-09-13)
PROC: 0BC38ZZ Extirpation of Matter from Right Main Bronchus, Via Natural or Artificial Opening Endoscopic (ICD-10-PCS; principal; 2017-09-13)
PROC: 0BC48ZZ Extirpation of Matter from Right Upper Lobe Bronchus, Via Natural or Artificial Opening Endoscopic (ICD-10-PCS; principal; 2017-09-13)
PROC: 0BC18ZZ Extirpation of Matter from Trachea, Via Natural or Artificial Opening Endoscopic (ICD-10-PCS; principal; 2017-09-13)
PROC: 0BC98ZZ Extirpation of Matter from Lingula Bronchus, Via Natural or Artificial Opening Endoscopic (ICD-10-PCS; principal; 2017-09-13)
PROC: 0BC88ZZ Extirpation of Matter from Left Upper Lobe Bronchus, Via Natural or Artificial Opening Endoscopic (ICD-10-PCS; principal; 2017-09-13)
PROC: 0BC58ZZ Extirpation of Matter from Right Middle Lobe Bronchus, Via Natural or Artificial Opening Endoscopic (ICD-10-PCS; principal; 2017-09-13)
PROC: 0BCB8ZZ Extirpation of Matter from Left Lower Lobe Bronchus, Via Natural or Artificial Opening Endoscopic (ICD-10-PCS; principal; 2017-09-13)
DX: A41.9 Sepsis, unspecified organism (principal); J96.01 Acute respiratory failure with hypoxia; J18.1 Lobar pneumonia, unspecified organism; J44.0 Chronic obstructive pulmonary disease with (acute) lower respiratory infection; J44.1 Chronic obstructive pulmonary disease with (acute) exacerbation; I10 Essential (primary) hypertension; E11.65 Type 2 diabetes mellitus with hyperglycemia; E78.5 Hyperlipidemia, unspecified; E83.39 Other disorders of phosphorus metabolism; E83.41 Hypermagnesemia; E87.6 Hypokalemia; T38.0X5A Adverse effect of glucocorticoids and synthetic analogues, initial encounter; J20.9 Acute bronchitis, unspecified; K21.9 Gastro-esophageal reflux disease without esophagitis; Z96.1 Presence of intraocular lens; E66.8 Other obesity; M13.88 Other specified arthritis, other site; F41.1 Generalized anxiety disorder; I48.91 Unspecified atrial fibrillation; Z68.35 Body mass index [BMI] 35.0-35.9, adult; Z79.82 Long term (current) use of aspirin; Z79.899 Other long term (current) drug therapy; Z87.440 Personal history of urinary (tract) infections; Z82.3 Family history of stroke; Z83.3 Family history of diabetes mellitus; Z82.49 Family history of ischemic heart disease and other diseases of the circulatory system; Z90.711 Acquired absence of uterus with remaining cervical stump; Z87.891 Personal history of nicotine dependence; Z80.1 Family history of malignant neoplasm of trachea, bronchus and lung; Z98.42 Cataract extraction status, left eye; Z98.41 Cataract extraction status, right eye

== ENCOUNTER → 2017-11-24 | Outpatient (CLI) | payer MEDICARE, MEDICAID ==
[~2017-11-24] MED LIST changes: +DOXYCYCLINE100 M3 PO; +NEURONTIN100 MG PO; +OXYGEN NAS; +PROAIR HFA8.5 GM INH; +SYMB160 INH; +VITAMIN D-32000 UNIT PO
[2017-11-24 08:21] LABS: HEMATOCRIT 41.9 % (37.0-47.0); HEMOGLOBIN 13.2 g/dl (12.0-16.0); MEAN CELL VOLUME 87.8 fl (81.0-99.0); MEAN CORPUSCULAR HGB 27.7 pg (27.0-31.0); MEAN CORPUSCULAR HGB CONC 31.5 g/dl (33.0-37.0); MEAN PLATELET VOLUME 11.7 fl (9.6-12.3); RED BLOOD COUNT 4.77 10*6/uL (4.10-5.10); RED CELL DISTRI WIDTH 14.6 % (0-14.5); WHITE BLOOD COUNT 8.1 10*3/uL (4.8-10.8)
[2017-11-24 08:45] LABS: ALBUMIN 3.6 gm/dl (3.1-4.5); ALKALINE PHOSPHATASE 59 U/L (45-117); BUN 9 mg/dl (7-24); CHLORIDE 104 mmol/L (98-107); CHOLESTEROL 205 mg/dL (<200); CREATININE 1.08 mg/dL (0.55-1.02); HDL CHOLESTEROL 50 mg/dl (40-60); LDL CHOLESTEROL 129 mg/dL (9-159); POTASSIUM 4.6 mmol/L (3.5-5.1); SGOT/AST 15 IU/L (3-35); SGPT/ALT 23 U/L (12-78); SODIUM 140 mmol/L (136-145); TOTAL PROTEIN 7.1 gm/dL (6.4-8.2); TRIGLYCERIDES 130 mg/dl (<150); VLDL CHOLESTEROL 26 mg/dL (6-40)
== END ==
LOC: LAB 07:52
PROVIDERS: Registered Nurse Flight
DX: I10 Essential (primary) hypertension (principal); J44.9 Chronic obstructive pulmonary disease, unspecified; E11.9 Type 2 diabetes mellitus without complications

== ENCOUNTER → 2018-03-07 | Outpatient (CLI) | payer MEDICARE, MEDICAID ==
[2018-03-07 10:03] LABS: HEMATOCRIT 41.1 % (37.0-47.0); HEMOGLOBIN 13.3 g/dl (12.0-16.0); MEAN CELL VOLUME 83.5 fl (81.0-99.0); MEAN CORPUSCULAR HGB CONC 32.4 g/dl (33.0-37.0); MEAN PLATELET VOLUME 11.3 fl (9.6-12.3); RED BLOOD COUNT 4.92 10*6/uL (4.10-5.10); RED CELL DISTRI WIDTH 14.5 % (0-14.5)
[2018-03-07 10:30] LABS: ALBUMIN 3.5 gm/dl (3.1-4.5); ALKALINE PHOSPHATASE 86 U/L (45-117); BUN 11 mg/dl (7-24); CHLORIDE 102 mmol/L (98-107); CHOLESTEROL 142 mg/dL (<200); CREATININE 1.07 mg/dL (0.55-1.02); HDL CHOLESTEROL 50 mg/dl (40-60); LDL CHOLESTEROL 71 mg/dL (9-159); SGOT/AST 13 IU/L (3-35); SGPT/ALT 17 U/L (12-78); SODIUM 137 mmol/L (136-145); TOTAL PROTEIN 7.5 gm/dL (6.4-8.2); TRIGLYCERIDES 104 mg/dl (<150); VLDL CHOLESTEROL 21 mg/dL (6-40)
== END | disposition home or self-care (01) ==
LOC: LAB 09:27 → US 12:30
PROVIDERS: Registered Nurse Flight
DX: E07.89 Other specified disorders of thyroid (principal); E11.65 Type 2 diabetes mellitus with hyperglycemia; N18.3 Chronic kidney disease, stage 3 (moderate); E78.5 Hyperlipidemia, unspecified; L65.9 Nonscarring hair loss, unspecified

== ENCOUNTER → 2018-04-04 | Outpatient (CLI) | payer MEDICARE, MEDICAID ==
[2018-04-04 10:02] LABS: BILIRUBIN NEGATIVE (NEGATIVE); BLOOD NEGATIVE (NEGATIVE); CLARITY CLEAR (CLEAR); COLOR YELLOW (YELLOW); GLUCOSE NEGATIVE (NEGATIVE); KETONE NEGATIVE (NEGATIVE); LEUKO ESTERASE 2+ (NEGATIVE); NITRITE NEGATIVE (NEGATIVE); SPECIFIC GRAVITY <= 1.005 (1.005-1.030); UROBILINOGEN 0.2 E.U./dl (0.2-1.0)
[2018-04-04 10:33] LABS: ALBUMIN 3.4 gm/dl (3.1-4.5); CREATININE 1.13 mg/dL (0.55-1.02); POTASSIUM 3.9 mmol/L (3.5-5.1); TOTAL PROTEIN 7.5 gm/dL (6.4-8.2)
[2018-04-04 10:44] LABS: BASO # 0.1 10*3/uL (0.0-0.1); EOS # 0.1 10*3/uL (0.0-0.4); EOS % 1.6 % (1.0-4.0); HEMOGLOBIN 13.4 g/dl (12.0-16.0); LYMPH # 1.7 10*3/uL (1.3-4.4); LYMPH % 20.6 % (27.0-41.0); MEAN CELL VOLUME 86.2 fl (81.0-99.0); MEAN CORPUSCULAR HGB 26.9 pg (27.0-31.0); MEAN CORPUSCULAR HGB CONC 31.2 g/dl (33.0-37.0); MEAN PLATELET VOLUME 11.7 fl (9.6-12.3); MONO # 0.4 10*3/uL (0.1-1.0); MONO % 5.3 % (3.0-9.0); NEUT # 5.7 10*3/uL (2.3-7.9); NEUT % 71.1 % (47.0-73.0); PLATELET COUNT AUTOMATED 254 10*3/uL (130-400); RED BLOOD COUNT 4.99 10*6/uL (4.10-5.10); RED CELL DISTRI WIDTH 15.3 % (0-14.5); WHITE BLOOD COUNT 8.1 10*3/uL (4.8-10.8)
[2018-04-04 10:49] LABS: BACTERIA 1+
[2018-04-05 10:05] LABS: CREATININE,URINE 28.7 mg/dL (Not Estab.); MICRO ALBUMIN/CRE RATIO 11.5 (0.0-30.0)
== END | disposition home or self-care (01) ==
LOC: LAB 09:24
PROVIDERS: Registered Nurse Flight
DX: E11.22 Type 2 diabetes mellitus with diabetic chronic kidney disease (principal); N18.3 Chronic kidney disease, stage 3 (moderate); E78.5 Hyperlipidemia, unspecified; N39.0 Urinary tract infection, site not specified; E55.9 Vitamin D deficiency, unspecified

== ENCOUNTER 2018-06-11 16:07 | Emergency (ER) | payer MEDICARE, MEDICAID ==
[~2018-06-11] VITALS: Ht 162.5 cm; Wt 87.1 kg
[2018-06-11 16:35] LABS: BASO # 0.1 10*3/uL (0.0-0.1); BASO % 0.5 % (0.0-1.0); EOS # 0.1 10*3/uL (0.0-0.4); EOS % 1.2 % (1.0-4.0); HEMATOCRIT 40.6 % (37.0-47.0); LYMPH # 2.2 10*3/uL (1.3-4.4); LYMPH % 22.7 % (27.0-41.0); MEAN CELL VOLUME 84.6 fl (81.0-99.0); MEAN CORPUSCULAR HGB 27.1 pg (27.0-31.0); MEAN PLATELET VOLUME 10.8 fl (9.6-12.3); MONO # 0.6 10*3/uL (0.1-1.0); MONO % 6.3 % (3.0-9.0); NEUT # 6.6 10*3/uL (2.3-7.9); NEUT % 68.9 % (47.0-73.0); PLATELET COUNT AUTOMATED 244 10*3/uL (130-400); RED CELL DISTRI WIDTH 15.4 % (0-14.5); WHITE BLOOD COUNT 9.5 10*3/uL (4.8-10.8)
[2018-06-11 16:49] LABS: ALBUMIN 3.4 gm/dl (3.1-4.5); CREATININE 1.15 mg/dL (0.55-1.02); POTASSIUM 3.5 mmol/L (3.5-5.1); TOTAL PROTEIN 7.4 gm/dL (6.4-8.2)
[2018-06-11 17:17] LABS: BILIRUBIN NEGATIVE (NEGATIVE); BLOOD NEGATIVE (NEGATIVE); CLARITY CLEAR (CLEAR); COLOR YELLOW (YELLOW); GLUCOSE NEGATIVE (NEGATIVE); KETONE NEGATIVE (NEGATIVE); LEUKO ESTERASE TRACE (NEGATIVE); NITRITE NEGATIVE (NEGATIVE); SPECIFIC GRAVITY <= 1.005 (1.005-1.030); UROBILINOGEN 0.2 E.U./dl (0.2-1.0)
[2018-06-11 17:38] LABS: RBC 0-2 rbc/hpf (0-2)
[2018-09-24] MEDS ORDERED: GLUCOPHAGE500 M1 PO (16:33)
[2018-09-24] MEDS ORDERED: LIPITOR10 MG PO (16:34)
[2018-09-24] MEDS ORDERED: TRAZODONE50 MG PO (16:35)
[2018-09-24] MEDS ORDERED: MULTIVITAMINS1 EAC5 PO (16:36)
[2018-09-24] MEDS ORDERED: CRANBERRY 12,61 EACH PO (16:37)
[2018-09-24] MEDS ORDERED: ATROVENT HFA12.9 GM INH (16:39)
[2018-09-28] MEDS ORDERED: VENTOLIN 02.5 MG/3 M NEB (12:48)
[2018-09-28] MEDS ORDERED: LOSARTAN POTASS50 M1 PO (12:48)
[2018-09-28] MEDS ORDERED: PREDNISONE10 MG PO (12:48)
[2018-09-28] MEDS ORDERED: DOXYCYCLINE100 M3 PO (12:48)
[2018-11-14] MEDS ORDERED: METOPROLOL25 MG PO (05:53)
[2018-11-14] MEDS ORDERED: OMEPRAZOLE40 MG PO (05:53)
[2018-11-14] MEDS ORDERED: MULTIVITAMINS1 EAC5 PO (05:54)
== END 2018-06-11 18:02 | disposition home or self-care (01) ==
LOC: ED 16:07
PROVIDERS: Nurse Practitioner Family
DX: R30.0 Dysuria (principal); R10.9 Unspecified abdominal pain; R30.9 Painful micturition, unspecified; K21.9 Gastro-esophageal reflux disease without esophagitis; J44.9 Chronic obstructive pulmonary disease, unspecified; I10 Essential (primary) hypertension; E78.5 Hyperlipidemia, unspecified; Z79.899 Other long term (current) drug therapy; Z79.82 Long term (current) use of aspirin; Z87.891 Personal history of nicotine dependence

== ENCOUNTER → 2018-07-24 | Outpatient (CLI) | payer OTHER, MEDICAID ==
[~2018-07-24] MED LIST changes: +ATROVENT HFA12.9 GM INH; +CRANBERRY 12,61 EACH PO; +GLUCOPHAGE500 M1 PO; +LIPITOR10 MG PO; +LOSARTAN POTASS50 M1 PO; +METOPROLOL25 MG PO; +MULTIVITAMINS1 EAC5 PO; +OMEPRAZOLE40 MG PO; +TRAZODONE50 MG PO; +VENTOLIN 02.5 MG/3 M NEB
== END | disposition home or self-care (01) ==
LOC: US 11:13
DX: N26.1 Atrophy of kidney (terminal) (principal); I10 Essential (primary) hypertension; E11.22 Type 2 diabetes mellitus with diabetic chronic kidney disease; N18.3 Chronic kidney disease, stage 3 (moderate)

== ENCOUNTER → 2018-10-07 | Outpatient (CLI) | payer OTHER, MEDICAID ==
[2018-10-07 10:31] LABS: HEMOGLOBIN 13.5 g/dl (12.0-16.0); MEAN CELL VOLUME 87.1 fl (81.0-99.0); MEAN CORPUSCULAR HGB CONC 32.1 g/dl (33.0-37.0); MEAN PLATELET VOLUME 11.7 fl (9.6-12.3); RED BLOOD COUNT 4.82 10*6/uL (4.10-5.10); RED CELL DISTRI WIDTH 14.7 % (0-14.5); WHITE BLOOD COUNT 18.7 10*3/uL (4.8-10.8)
[2018-10-07 10:36] LABS: BILIRUBIN NEGATIVE (NEGATIVE); BLOOD NEGATIVE (NEGATIVE); CLARITY CLEAR (CLEAR); COLOR YELLOW (YELLOW); GLUCOSE NEGATIVE (NEGATIVE); KETONE NEGATIVE (NEGATIVE); LEUKO ESTERASE 1+ (NEGATIVE); NITRITE NEGATIVE (NEGATIVE); PH 5.5 (5.0-9.0); SPECIFIC GRAVITY <= 1.005 (1.005-1.030); UROBILINOGEN 0.2 E.U./dl (0.2-1.0)
[2018-10-07 10:57] LABS: ALBUMIN 3.3 gm/dl (3.1-4.5); ALKALINE PHOSPHATASE 47 U/L (45-117); BUN 20 mg/dl (7-24); CHLORIDE 99 mmol/L (98-107); CREATININE 1.05 mg/dL (0.55-1.02); POTASSIUM 3.9 mmol/L (3.5-5.1); SGOT/AST 7 IU/L (3-35); SGPT/ALT 21 U/L (12-78); SODIUM 137 mmol/L (136-145); TOTAL PROTEIN 6.7 gm/dL (6.4-8.2)
[2018-10-07 11:21] LABS: BACTERIA TRACE; RBC 0-2 rbc/hpf (0-2); WBC 0-2 wbc/hpf (0-5)
== END | disposition home or self-care (01) ==
LOC: LAB 09:04
PROVIDERS: Registered Nurse Flight
DX: N39.0 Urinary tract infection, site not specified (principal); I12.9 Hypertensive chronic kidney disease with stage 1 through stage 4 chronic kidney disease, or unspecified chronic kidney disease; N18.3 Chronic kidney disease, stage 3 (moderate); E11.22 Type 2 diabetes mellitus with diabetic chronic kidney disease

== ENCOUNTER → 2018-12-28 | Outpatient (CLI) | payer OTHER, MEDICAID ==
[2018-12-28 11:06] LABS: HEMATOCRIT 43.3 % (37.0-47.0); HEMOGLOBIN 13.4 g/dl (12.0-16.0); MEAN CELL VOLUME 89.5 fl (81.0-99.0); MEAN CORPUSCULAR HGB 27.7 pg (27.0-31.0); MEAN CORPUSCULAR HGB CONC 30.9 g/dl (33.0-37.0); MEAN PLATELET VOLUME 12.4 fl (9.6-12.3); RED BLOOD COUNT 4.84 10*6/uL (4.10-5.10); RED CELL DISTRI WIDTH 14.9 % (0-14.5); WHITE BLOOD COUNT 7.6 10*3/uL (4.8-10.8)
[2018-12-28 11:23] LABS: ALBUMIN 3.5 gm/dl (3.1-4.5); ALKALINE PHOSPHATASE 63 U/L (45-117); BUN 10 mg/dl (7-24); CHLORIDE 106 mmol/L (98-107); CHOLESTEROL 158 mg/dL (<200); HDL CHOLESTEROL 57 mg/dl (40-60); LDL CHOLESTEROL 74 mg/dL (9-159); POTASSIUM 3.9 mmol/L (3.5-5.1); SGOT/AST 12 IU/L (3-35); SGPT/ALT 19 U/L (12-78); SODIUM 139 mmol/L (136-145); TOTAL PROTEIN 7.1 gm/dL (6.4-8.2); TRIGLYCERIDES 133 mg/dl (<150); VLDL CHOLESTEROL 27 mg/dL (6-40)
== END | disposition home or self-care (01) ==
LOC: LAB 09:56
PROVIDERS: Registered Nurse Flight
DX: E11.65 Type 2 diabetes mellitus with hyperglycemia (principal); E11.22 Type 2 diabetes mellitus with diabetic chronic kidney disease; N18.3 Chronic kidney disease, stage 3 (moderate); E78.5 Hyperlipidemia, unspecified; E04.1 Nontoxic single thyroid nodule

== ENCOUNTER → 2019-02-16 | Outpatient (CLI) | payer OTHER, MEDICAID | END | disposition home or self-care (01) | LOC: RAD 08:42 | DX: R10.9 Unspecified abdominal pain (principal); E11.22 Type 2 diabetes mellitus with diabetic chronic kidney disease; N18.3 Chronic kidney disease, stage 3 (moderate) ==

== ENCOUNTER → 2019-04-19 | Outpatient (CLI) | payer OTHER, MEDICAID ==
[2019-04-19 09:37] LABS: BILIRUBIN NEGATIVE (NEGATIVE); BLOOD NEGATIVE (NEGATIVE); CLARITY SL CLOUDY (CLEAR); COLOR YELLOW (YELLOW); GLUCOSE NEGATIVE (NEGATIVE); KETONE NEGATIVE (NEGATIVE); LEUKO ESTERASE 3+ (NEGATIVE); NITRITE NEGATIVE (NEGATIVE); SPECIFIC GRAVITY <= 1.005 (1.005-1.030); UROBILINOGEN 0.2 E.U./dl (0.2-1.0)
[2019-04-19 10:22] LABS: BACTERIA 4+
[2019-04-19 10:23] LABS: WBC 41-50 wbc/hpf (0-5)
== END | disposition home or self-care (01) ==
LOC: LAB 08:27
PROVIDERS: Registered Nurse Flight
DX: M47.816 Spondylosis without myelopathy or radiculopathy, lumbar region (principal); M43.22 Fusion of spine, cervical region; R30.0 Dysuria

== ENCOUNTER → 2019-07-24 | Outpatient (CLI) | payer OTHER, MEDICAID ==
[2019-07-24 10:41] LABS: HEMATOCRIT 41.7 % (37.0-47.0); HEMOGLOBIN 13.2 g/dl (12.0-16.0); MEAN CELL VOLUME 87.8 fl (81.0-99.0); MEAN CORPUSCULAR HGB 27.8 pg (27.0-31.0); MEAN CORPUSCULAR HGB CONC 31.7 g/dl (33.0-37.0); MEAN PLATELET VOLUME 12.1 fl (9.6-12.3); RED BLOOD COUNT 4.75 10*6/uL (4.10-5.10); RED CELL DISTRI WIDTH 13.8 % (0-14.5); WHITE BLOOD COUNT 7.5 10*3/uL (4.8-10.8)
[2019-07-24 11:08] LABS: ALBUMIN 3.6 gm/dl (3.1-4.5); ALKALINE PHOSPHATASE 61 U/L (45-117); BUN 15 mg/dl (7-24); CHLORIDE 104 mmol/L (98-107); CHOLESTEROL 168 mg/dL (<200); CREATININE 0.87 mg/dL (0.55-1.02); HDL CHOLESTEROL 59 mg/dl (40-60); LDL CHOLESTEROL 78 mg/dL (9-159); POTASSIUM 3.8 mmol/L (3.5-5.1); SGOT/AST 12 IU/L (3-35); SGPT/ALT 21 U/L (12-78); SODIUM 139 mmol/L (136-145); TOTAL PROTEIN 7.5 gm/dL (6.4-8.2); TRIGLYCERIDES 154 mg/dl (<150); VLDL CHOLESTEROL 31 mg/dL (6-40)
[2019-07-27 04:10] LABS: ALTERNARIA ALTERNATA, IGE <0.10 kU/L (Class 0); ASPERGILLUS FUMIGATU, IGE <0.10 kU/L (Class 0); CLADOSPORIUM HERBARU, IGE <0.10 kU/L (Class 0); PENICILLIUM CHRYSOGENUM, IGE <0.10 kU/L (Class 0); SETOMELANOMMA ROSTRAT <0.10 kU/L (Class 0); STEMPHYLIUM HERBARUM <0.10 kU/L (Class 0)
== END | disposition home or self-care (01) ==
LOC: LAB 08:57
PROVIDERS: Registered Nurse Flight
DX: T78.49XA Other allergy, initial encounter (principal); E11.9 Type 2 diabetes mellitus without complications; Z77.120 Contact with and (suspected) exposure to mold (toxic); E78.5 Hyperlipidemia, unspecified; X58.XXXA Exposure to other specified factors, initial encounter

== ENCOUNTER → 2019-12-22 | Outpatient (CLI) | payer OTHER, MEDICAID ==
[2019-12-22 10:49] LABS: BUN 12 mg/dl (7-24); CHLORIDE 106 mmol/L (98-107); CHOLESTEROL 164 mg/dL (<200); CREATININE 0.96 mg/dL (0.55-1.02); HDL CHOLESTEROL 63 mg/dl (40-60); LDL CHOLESTEROL 84 mg/dL (9-159); POTASSIUM 4.1 mmol/L (3.5-5.1); SODIUM 138 mmol/L (136-145); TRIGLYCERIDES 85 mg/dl (<150); VLDL CHOLESTEROL 17 mg/dL (6-40)
== END | disposition home or self-care (01) ==
LOC: LAB 08:48
PROVIDERS: Registered Nurse Flight
DX: E11.9 Type 2 diabetes mellitus without complications (principal); I10 Essential (primary) hypertension; E78.5 Hyperlipidemia, unspecified

== ENCOUNTER → 2020-10-13 | Outpatient (CLI) | payer OTHER, MEDICAID | END | disposition home or self-care (01) | LOC: RAD 13:34 | PROVIDERS: ATTEND Internal Medicine | DX: M19.012 Primary osteoarthritis, left shoulder (principal); M17.12 Unilateral primary osteoarthritis, left knee; M25.561 Pain in right knee ==

== ENCOUNTER → 2020-10-21 | Outpatient (CLI) | payer OTHER, MEDICAID | LOC: US 08:30 | PROVIDERS: ATTEND Internal Medicine | DX: N83.202 Unspecified ovarian cyst, left side (principal) ==

== ENCOUNTER → 2022-07-23 | Outpatient (CLI) | payer OTHER, MEDICAID | END | disposition home or self-care (01) | LOC: US 00:58 | PROVIDERS: ATTEND Internal Medicine | DX: N83.202 Unspecified ovarian cyst, left side (principal) ==

== ENCOUNTER → 2022-12-31 | Outpatient (CLI) | payer OTHER, MEDICAID | END | disposition home or self-care (01) | LOC: MRI 01:07 | PROVIDERS: ATTEND Internal Medicine | DX: I67.82 Cerebral ischemia (principal); I67.1 Cerebral aneurysm, nonruptured ==

== ENCOUNTER 2023-04-12 12:45 | Emergency (ER) | payer OTHER, MEDICAID ==
[~2023-04-12] VITALS: Wt 80.3 kg
[2023-04-12 15:36] LABS: BASO # 0.1 10*3/uL (0.0-0.1); BASO % 0.7 % (0.0-1.0); EOS # 0.2 10*3/uL (0.0-0.4); EOS % 2.4 % (1.0-4.0); HEMATOCRIT 44.3 % (37.0-47.0); LYMPH # 2.3 10*3/uL (1.3-4.4); LYMPH % 32.1 % (27.0-41.0); MEAN CELL VOLUME 87.5 fl (81.0-99.0); MEAN CORPUSCULAR HGB 28.7 pg (27.0-31.0); MEAN CORPUSCULAR HGB CONC 32.7 g/dl (33.0-37.0); MEAN PLATELET VOLUME 10.8 fl (9.6-12.3); MONO # 0.7 10*3/uL (0.1-1.0); MONO % 9.3 % (3.0-9.0); NEUT # 3.9 10*3/uL (2.3-7.9); NEUT % 55.4 % (47.0-73.0); PLATELET COUNT AUTOMATED 242 10*3/uL (130-400); RED BLOOD COUNT 5.06 10*6/uL (4.10-5.10); RED CELL DISTRI WIDTH 13.2 % (0-14.5)
[2023-04-12 15:46] LABS: BILIRUBIN Negative (Negative); BLOOD Trace-Lysed (Negative); CLARITY Clear (Clear); COLOR Yellow (Yellow); GLUCOSE Negative (Negative); KETONE 2+ (Negative); LEUKO ESTERASE Negative (Negative); NITRITE Negative (Negative); SPECIFIC GRAVITY 1.015 (1.001-1.030)
[2023-04-12 15:56] LABS: MUCOUS 1+
[2023-04-12 15:57] LABS: POTASSIUM 3.8 mmol/L (3.4-5.1)
== END 2023-04-12 19:42 | disposition home or self-care (01) ==
LOC: ED 12:45
PROVIDERS: Physician Assistant Medical
DX: R35.0 Frequency of micturition (principal); R30.0 Dysuria; R10.31 Right lower quadrant pain; I10 Essential (primary) hypertension; K21.9 Gastro-esophageal reflux disease without esophagitis; J44.9 Chronic obstructive pulmonary disease, unspecified; E78.5 Hyperlipidemia, unspecified; F41.9 Anxiety disorder, unspecified; F32.A Depression, unspecified; M19.90 Unspecified osteoarthritis, unspecified site; E11.9 Type 2 diabetes mellitus without complications; E78.00 Pure hypercholesterolemia, unspecified; Z90.711 Acquired absence of uterus with remaining cervical stump; Z98.890 Other specified postprocedural states; Z87.891 Personal history of nicotine dependence